=== PATIENT | male | born 1990 | race Caucasian/White ===

== ENCOUNTER 2018-09-27 18:05 | Emergency (ER) | payer SELFPAY ==
[~2018-09-27] VITALS: Ht 167.6 cm; Wt 79.5 kg
[~2018-09-27 18:05] MED LIST: NO MEDS
[2018-09-27 18:43] VITALS: BP 135/75; PULSE 79; RESP 18; Ht 167.6 cm; Wt 79.5 kg
[2018-09-27] MEDS ORDERED: IBUP-1542 PO (21:15)
[2018-09-27] MEDS ORDERED: ELEC100095 PO (21:15)
--- NOTE | 2018-09-27 21:17 | ERD ---
ER Documentation Chief Complaint Chief Complaint DIZZINESS, TIRED X'S 1 DAY HPI 27-year-old male presented to ED for tired weakness and dizziness x1 day. Patient states he has been very tired and that he is been working 60 hours a week at work and has not gotten much sleep. Patient is afebrile he denies any nausea vomiting diarrhea, abdominal pain shortness of breath LOC sensation of a skin to pass out. Patient is able to pass urine and stool without difficulty. Patient denies fever chills cough. Patient denies any sick contacts and states that he does not have any past medical history and currently does not take any medications for anything. ROS All systems reviewed and are negative except as per history of present illness. Medications Home Meds Active Scripts Electrolytes (Pedialyte Advanced Care) 1,000 Ml Solution, 1000 ML PO 2 HOURS AFTER MEALS for 7 Days Prov:JAYY LEON PA-C 09/27/18 Ibuprofen* (Motrin*) 600 Mg Tab, 600 MG PO Q6, #30 TAB Prov:JAYY LEON PA-C 09/27/18 Reported Medications [No Meds] No Conflict Check 10/09/09 Allergies Allergies: Coded Allergies: No Known Allergy (Unverified , 09/27/18) PMhx/Soc Medical and Surgical Hx: pt denies Medical Hx, pt denies Surgical Hx History of Surgery: No Anesthesia Reaction: No Hx Neurological Disorder: No Hx Respiratory Disorders: No Hx Cardiac Disorders: No Hx Psychiatric Problems: No Hx Miscellaneous Medical Probl: No Hx Alcohol Use: No Hx Substance Use: No Hx Tobacco Use: No Smoking Status: Never smoker FmHx Family History: diabetes Physical Exam Vitals Vital Signs Date Temp Pulse Resp B/P (MAP) Pulse Ox O2 O2 Flow FiO2 Time Delivery Rate 09/27/18 98.7 79 18 135/75 99 18:43 (95) Physical Exam Const: No acute distress Head: Atraumatic Eyes: Normal Conjunctiva ENT: Normal External Ears, Nose and Mouth. Neck: Full range of motion. No meningismus. Resp: Clear to auscultation bilaterally Cardio: Regular rate and rhythm, no murmurs Abd: Soft, non tender, non distended. Normal bowel sounds Skin: No petechiae or rashes Back: No midline or flank tenderness Ext: No cyanosis, or edema Neur: Awake and alert Psych: Normal Mood and Affect Procedures/MDM Medical decision makin-year-old male presenting to the ED for dizziness and general fatigue x2 days. Patient states he is just very exhausted that has been working a lot and has not gotten much sleep. Patient is afebrile denies fever chills cough headache. Patient states his blurred vision is more associated with not getting enough sleep. Patient is able to eat solid and liquids without difficulty and has not had any episodes of vomiting, diarrhea, blood in stool or urine. Patient denies any sick contacts. Patient's physical exam was unremarkable patient is able to touch his chin to his neck without difficulty. Patient's lungs are clear bilateral. Patient's abdomen region is soft and nontender no signs of hepatomegaly, splenomegaly or palpable masses. Patient has good range of motion in all extremities. She remained afebrile the entire time during his visit. at this time I have low suspicion for coronary syndrome, AAA, mesenteric ischemia, lower lobe pneumonia, DKA, bowel perforation, cholecystitis, choledocholithiasis, ascending cholangitis, hepatic abscess, pancreatitis, PUD, gastritis, GERD, splenic rupture, diverticulitis, UTI, pyelonephritis, nephrolithiasis, appendicitis, constipation, testicular torsion, influenza, pneumonia patient states he just really wants to have some time off o f work and is requesting to have a week off of work. Patient was given a work note and a prescription for Motrin and Pedialyte to help stay hydrated. Patient was advised that he should follow-up with his primary care provider regarding this visit in 1 to 2 days. Patient was advised if symptoms worsen to return the ER immediately. Patient is in agreement to the treatment plan and had no further questions upon discharge. Prescription for home: Motrin Pedialyte Discharge: At this time, patient is stable for discharge and outpatient management. I have instructed the patient to follow-up with his\her primary care physician in 1 to 2 days. I have discussed with the patient the possibility of needing to see a specialist for further work-up and imaging studies if symptoms persist. I have instructed the patient to promptly return to the ER for any new or worsening symptoms including increased pain, fever, nausea, vomiting, weakness or LOC. The patient and\or family expressed understanding of and agreement with this plan. All questions were answered. Home care instructions were provided. Disclaimer: Inadvertent spelling and grammatical errors are likely due to EHR\dictation software use and do not reflect on the overall quality of patient care. Also, please note that the electronic time recorded on the note does not necessarily reflect the actual time of the patient encounter. Departure Diagnosis: Primary Impression: Fatigue Fatigue type: unspecified Qualified Codes: R53.83 - Other fatigue Condition: Stable Patient Instructions: Generalized Weakness Referrals: [facility] YOU HAVE RECEIVED A MEDICAL SCREENING EXAM AND THE RESULTS INDICATE THAT YOU DO NOT HAVE A CONDITION THAT REQUIRES URGENT TREATMENT IN THE EMERGENCY DEPARTMENT. FURTHER EVALUATION AND TREATMENT OF YOUR CONDITION CAN WAIT UNTIL YOU ARE SEEN IN YOUR DOCTORS OFFICE WITHIN THE NEXT 1-2 DAYS. IT IS YOUR RESPONSIBILITY TO MAKE AN APPOINTMENT FOR FOLOW-UP CARE. IF YOU HAVE A PRIMARY DOCTOR --you should call your primary doctor and schedule an appointment IF YOU DO NOT HAVE A PRIMARY DOCTOR YOU CAN CALL OUR PHYSICIAN REFERRAL HOTLINE AT IF YOU CAN NOT AFFORD TO SEE A PHYSICIAN YOU CAN CHOSE FROM THE FOLLOWING [facility] [address] [facility] [address] [facility]. [facility] [address] [facility] [address] [facility] [address] [facility]. [facility]. [address] [facility]. [facility] YOU HAVE RECEIVED A MEDICAL SCREENING EXAM AND THE RESULTS INDICATE THAT YOU DO NOT HAVE A CONDITION THAT REQUIRES URGENT TREATMENT IN THE EMERGENCY DEPARTMENT. FURTHER EVALUATION AND TREATMENT OF YOUR CONDITION CAN WAIT UNTIL YOU ARE SEEN IN YOUR DOCTORS OFFICE WITHIN THE NEXT 1-2 DAYS. IT IS YOUR RESPONSIBILITY TO MAKE AN APPOINTMENT FOR FOLOW-UP CARE. IF YOU HAVE A PRIMARY DOCTOR --you should call your primary doctor and schedule and appointment IF YOU DO NOT HAVE A PRIMARY DOCTOR YOU CAN CALL OUR PHYSICIAN REFERRAL HOTLINE AT . IF YOU CAN NOT AFFORD TO SEE A PHYSICIAN YOU CAN CHOSE FROM THE FOLLOWING [facility] INSTITUTIONS: [facility] [id number] [place] [id number] [facility] [address] [place] [address] [facility] [address] [place] [address] Additional Instructions: Call your primary care doctor TOMORROW for an appointment during the next 1-2 days.See the doctor sooner or return here if your condition worsens before your appointment time. JAYY LEON PA-C Sep 27, 2018 21:17
== END 2018-09-27 21:34 | disposition home or self-care (01) ==
LOC: FTE 18:05
DX: R53.83 Other fatigue (principal)
CPT/HCPCS: 99282